=== PATIENT | male | born 1975 | race African-American/Black ===

== ENCOUNTER 2016-07-08 05:35 | Day surgery (SDC) | payer OTHER ==
[~2016-07-08] VITALS: Ht 182.9 cm; Wt 127.0 kg
--- NOTE | ~2016-07-08 | S ---
[facility] [place] [address] SURGICAL PATH RPT PROCEDURE Name: HEMA HUMMEL Room #: 150-5 [facility] M.R.#: [id number] Admission: 07/08/16 Date of : 75 Discharge: Report #: [id number] Path Case #: [id number] PATHOLOGY REPORT COLLECTION DATE: 07/08/2016 RECEIVED DATE: 07/09/2016 SUBMITTING PHYS: Dr. Brandon Nation OTHER PHYS: SPECIMEN(S) RECEIVED: A.Left gluteus tissue B.Left hip foreign body * * * * * * * * * * * * FINAL DIAGNOSIS: A. Subcutaneous soft tissue "left gluteal tissue": - Extensive necrosis with acute and chronic inflammation and fibrosis. B. Foreign body "left hip": - Left hip foreign body. PATHOLOGIST: Sean Shafer M.D. REPORT ELECTRONICALLY SIGNED BY: Sean Shafer M.D. DATE/TIME: 07/13/2016 15:57 * * * * * * * * * * * * GROSS PATHOLOGY: A. The specimen is received in formalin labeled "Senecca Chacho, left gluteus tissue". Received are multiple segments of yellow-jovel fibroadipose tissue with possible attached skin measuring 5.5 x 4.2 x 2.5 cm in aggregate dimensions. The specimen is submitted representatively in cassette A1. B. The specimen is received in formalin labeled "Senecca Chacho, left hip foreign-body". Received is a segment of light jovel to copper metal measuring 1.9 x 1.3 x 0.5 cm in greatest dimensions. Gross photographs are taken. Sections are not submitted. (CAA; 07/09/2016) CLINICAL HISTORY: Foreign-body left hip INITIAL CPT CODE(S): A; 10367 B; 27942 Professional services performed by [facility], [address] [place] [address]. Technical services performed by [facility], [facility] [address] [place] [address] SURGICAL PATH RPT PROCEDURE [facility]: [facility]: [facility]5 [facility] M.R.#: [id number] Admission: 07/08/16 Date of : 75 Discharge: Report #: [id number] Path Case #: [id number] [id number] [facility], [address], [place] [address]. [facility] [address] [place] [address] PHONE: [phone] DIRECTOR: Chacho Escalante M.D. * * * END OF REPORT * * *
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
[~2016-07-08 05:35] MED LIST: AMOXICILLIN500 M1 PO; BOOST244 ML PO; CORTISPORIN OTI10 ML OTIC; FENTANYL PA50 MCG/HR; GENTAMICIN 0.1%15 G2 TOP; KEFLEX; LORCET HD 10-31 EACH PO; NEURONTIN600 MG PO; NOHOMEMEDICATIONS; NORCO 5-325 TA1 EACH PO; OXYCODONE HCL E10 MG PO; PERCOCET 5-3251 EACH PO; TOBREX5 ML OPHTHALMIC
[2016-07-08 08:49] VITALS: BP 151/94
[2016-07-08 12:29] VITALS: BP 151/94
== END 2016-07-08 14:10 | disposition home or self-care (01) ==
LOC: OR 05:35 → TBA 05:35 → OR 11:39
DX: T81.89XA Other complications of procedures, not elsewhere classified, initial encounter (principal); L98.8 Other specified disorders of the skin and subcutaneous tissue; E66.01 Morbid (severe) obesity due to excess calories; Z18.10 Retained metal fragments, unspecified; Z68.39 Body mass index [BMI] 39.0-39.9, adult; F17.210 Nicotine dependence, cigarettes, uncomplicated; Z98.890 Other specified postprocedural states
CPT/HCPCS: 50010; 50101; 50386; 50403; 54118; 56524; 56526; 62110; 62900; 70005